=== PATIENT | male | born 1955 | race Caucasian/White ===

== ENCOUNTER 2017-08-03 06:20 | Day surgery (SDC) | payer OTHER ==
--- NOTE | 2017-07-30 10:30 | HP ---
DATE OF ADMISSION: 08/03/2017 DATE OF DICTATION: 05/08/2017 DATE OF SURGERY: Undetermined. BRIEF HISTORY: This is a 61-year-old gentleman who had 2 bouts of sharp pain in the left groin region. Both bouts resolved spontaneously. Patient states this discomfort feels like what he had on the right side when he had a right inguinal hernia. He has had no nausea, no vomiting, no change in bowel habits. He saw his primary care physician, who thought he may have a hernia and was referred here for further evaluation and management. Patient states he is moving his bowels. Other than the 2 bouts of sharp pain, he has not had any recurrences. He does have discomfort in the left groin which he has had for quite some time (greater than 3 months). He noticed a slight fullness in the left groin. PAST MEDICAL HISTORY: No coronary artery disease, hypertension, or diabetes. PAST SURGICAL HISTORY: Open right inguinal hernia repair in 2006 ([place]) and appendectomy in 1981 (open). ALLERGIES: None. MEDICATION: Lipitor and vitamins. SOCIAL HISTORY: He does not smoke. He drinks socially. PHYSICAL EXAMINATION: Lungs: Clear. Heart: Regular rhythm. Abdomen: Soft. Nontender. Nondistended. He has a poorly healed appendectomy scar. He has a very well healed right inguinal scar. He has no obvious recurrence in the right groin. The scrotum and testicles within normal limits. On the left side , he has a moderate size left inguinal hernia reducible in the supine position. Left scrotum, testicles within normal limits. IMPRESSION/PLAN: Left inguinal hernia: This is a 61-year-old gentleman with a left inguinal hernia. He is symptomatic from the hernia, and therefore I would recommend a repair at this time. We discussed the various approaches, laparoscopic versus open, and given the fact that he has good repair on the right still I would recommend an open repair on the left with mesh. The pros and cons of the laparoscopic case versus open has been discussed as well. Patient will schedule for an open left inguinal hernia repair in June after his summer activities are over. He understands that if he develops sharp pain in the left groin region or a mass that is very tender, he will present to the emergency room for urgent evaluation. The indications, alternatives, complications of procedure discussed. Questions answered. Will plan to obtain written consent on the day of surgery. Sergio KAPOOR [id number] cc: Dr. Inocente Rm, [place], [place] [phone] [facility]
[2017-07-31 11:45] VITALS: BMI 26.6
[2017-08-03] MEDS ORDERED: TAMSULOSIN HCL 0.4 MG CAP.ER.24H (FP) ONE (06:38)
[2017-08-03] MEDS ORDERED: BUPIVACAINE HCL/PF 0.5% (5MG/ML) 10 ML VIAL ONE (07:20)
[2017-08-03] MEDS ORDERED: SUCCINYLCHOLINE CHLORIDE 200 MG/10 ML VIAL ONE (08:00)
[2017-08-03] MEDS ORDERED: ROCURONIUM BROMIDE 50 MG/5 ML VIAL ONE (08:00)
[2017-08-03] MEDS ORDERED: PROPOFOL 20 ML ONE ×2 (08:00)
[2017-08-03] MEDS ORDERED: LIDOCAINE HCL 2% 100 MG/5 ML DISP.SYRIN ONE (08:07)
[2017-08-03] MEDS ORDERED: ceFAZolin SODIUM 1 GM VIAL ONE (08:14)
[2017-08-03] MEDS ORDERED: ONDANSETRON 4 MG/2 ML VIAL ONE (08:17)
[2017-08-03] MEDS ORDERED: DEXAMETHASONE SOD PHOSPHATE 4 MG/1 ML VIAL ONE (08:17)
[2017-08-03] MEDS ORDERED: BUPIVACAINE HCL/PF 0.5% (5MG/ML) 10 ML VIAL IJ ONE (09:28)
[2017-08-03] MEDS ORDERED: ONDANSETRON 4 MG/2 ML VIAL IVPUSH PRN (09:51)
[2017-08-03] MEDS ORDERED: LACTATED RINGERS SOLUTION 1,000 ML IV SCH (10:00)
--- NOTE | 2017-08-03 10:11 | OP ---
DATE OF OPERATION: 08/03/2017 PREOPERATIVE DIAGNOSIS: Left inguinal hernia. POSTOPERATIVE DIAGNOSIS: Left indirect sliding inguinal hernia. PROCEDURE: Open repair of left inguinal hernia that was a slider with mesh, 8-cm wound closure. SURGEON: Andrea Brown MD ENGINEER BYPRODUCT: Guille Raymond MD ANESTHESIA: Nataly Krishna MD (general). ESTIMATED BLOOD LOSS: Minimal. SPECIMEN: Portion of hernia sac with incarcerated sliding component, cord lipoma. INDICATIONS/PROCEDURE: This is a 61-year-old gentleman with a known left inguinal hernia that has caused him discomfort, and he now wishes to have this repaired. Refer to my history and physical for complete details. Patient was identified and appropriately positioned on the operating room table. After placement of general anesthesia, the left groin and abdomen were prepped and draped in the usual sterile fashion with ChloraPrep. An 8-cm left inguinal incision was made deep into the subcutaneous tissues. Scarpas was divided sharply. The fascia of the external oblique opened in the direction of its fivers through the external ring. The inguinal nerve retracted laterally. The cord structures were isolated with the pubic tubercle. The cord structures were then from the indirect inguinal hernia sac with blunt dissection down to the level of the internal ring. This had a markedly attenuated internal ring. He also had a large indirect inguinal hernia sac containing what appeared to be fat. Given this palpation, I opened the sac. The sac clearly was a slider, and the fat made up the back wall of the hernia. The fat was sharply excised and handed off as incarcerated contents of hernia sac with sliding component. The sac was then oversewn with a running 3-0 chromic suture. The sac reduced back into the preperitoneal space through the internal ring. The floor opened, and a Marlex mesh plug placed into the inguinal floor and then anchored with a multitude of interrupted 0 Prolene sutures. The inguinal floor reapproximated with a running 2-0 Prolene suture. A Marlex mesh patch was then placed on top of the inguinal floor, and the patch was slit to allow passage of the ring. The patch itself was anchored with interrupted 2-0 Prolene sutures. The inguinal nerve as well as spermatic cord returned to its anatomic position. The fascia at the external oblique closed with a running 3-0 Vicryl suture. Scarpas was reapproximated with interrupted inverted 3-0 Vicryl suture, and the skin closed with 4-0 subcuticular Biosyn followed by Dermabond. At the conclusion of the case, sponge counts were correct. ATTESTATION: Brief operative note handwritten on the preprinted form. [facility] queried prior to giving any narcotics. Sergio KAPOOR [id number] cc: Dr. Inocente Rm , [place], [place].
[2017-08-03] MEDS ORDERED: oxyCODONE HCL 5 MG TABLET ONE ×2 (11:19→12:07)
[2017-08-03] MEDS: oxyCODONE HCL 5 MG TABLET PO PRN ×2 (11:20→12:09)
[2017-08-03 13:29] VITALS: BP 129/70; PULSE 84; TEMP 98
--- NOTE | 2017-08-07 15:50 | PATH ---
Surgical Pathology Report Patient Name: DOMINGO ZELAYA [facility]. Rec. #: [id number] /Age/Gender: 1955 (Age: 61) / M Account: [id number] Location: [facility] Taken: 08/03/2017 Received: 08/03/2017 Reported: 08/07/2017 Physicians: Andrea Brown Specimen(s) Received PORTION OF SLIDING HERNIA SAC W/ CONTENTS Clinical History Lower abdominal pain, unilateral inguinal hernia Final Diagnosis RIGHT INGUINAL REGION, HERNIORRHAPHY: FIBROADIPOSE TISSUE AND RARE FIBRO-MEMBRANOUS TISSUE CONSISTENT WITH HERNIA SAC. Electronically Signed Trixie Davis M.D. Gross Description Received in formalin labeled "portion of sliding hernia sac with contents," is a 9.0 x 7.5 x 3.0 cm aggregate of parada schrader fibromembranous tissue with abundant attached yellow, lobulated adipose tissue. [place] Operator sections are submitted in one cassette. /08/06/2017 saudi08/06/2017
== END 2017-08-03 13:20 | disposition home or self-care (01) ==
LOC: FASU 06:20
PROVIDERS: ATTEND Surgery
PROC: 0YU60JZ Supplement Left Inguinal Region with Synthetic Substitute, Open Approach (ICD-10-PCS; principal; 2017-08-03 07:59)
DX: K40.90 Unilateral inguinal hernia, without obstruction or gangrene, not specified as recurrent (principal)
CPT/HCPCS: 88302-TC; 94760